=== PATIENT | female | born 1940 | race Caucasian/White ===

== ENCOUNTER 2019-02-12 08:05 | Inpatient (IN) | payer OTHER ==
[~2019-02-12] VITALS: Ht 157.5 cm; Wt 63.5 kg
[~2019-02-12 08:05] MED LIST: NKM
[2019-02-12 08:10] VITALS: BP 134/87
--- NOTE | 2019-02-12 08:10 | NUR ---
ED Nurse Note: pt brought by RA 61 from front of building side walk due to generalized weakness. security called [employer] and [employer] called 911. pt denies any injury or pain. per pt, slept there but did not know how long. AAO x3. does not know why she is in hospital. skin cold to touch. warm blankets provide. 98F oral at the bed side. a-fib noted on senior marketing analyst. hx of HTN and not on any meds. ekg done at the bed side. BS 110. pt undressed and changed to hospital gown. unkept noted. skin intact, no open wound noted. respirations even and non-labored noted. breath sounds clear. on senior marketing analyst. will wait for the further order.
[2019-02-12] MEDS ORDERED: Sodium Chloride 1,900 ML IVLG ONE (09:00)
[2019-02-12 09:04] LABS: BASOPHILS % (AUTO) 0.7 % (0.0-2.0); EOSINOPHILS % (AUTO) 0.9 % (0.0-3.0); HEMATOCRIT 43.1 % (37.0-47.0); HEMOGLOBIN 14.1 G/DL (12.0-16.0); LYMPHOCYTES % (AUTO) 22.2 % (20.0-45.0); MEAN CORPUSCULAR VOLUME 90 FL (80-99); MONOCYTES % (AUTO) 5.8 % (1.0-10.0); NEUTROPHILS % (AUTO) 70.4 % (45.0-75.0); PLATELET COUNT 206 K/UL (150-450); RED BLOOD COUNT 4.79 M/UL (4.20-5.40); RED CELL DISTRIBUTION WIDTH 12.3 % (11.6-14.8); WHITE BLOOD COUNT 6.1 K/UL (4.8-10.8)
[2019-02-12 09:05] LABS: APPEARANCE,URINE CLEAR; BILIRUBIN, URINE NEGATIVE (NEGATIVE); COLOR,URINE PALE YELLOW; GLUCOSE, URINE (UA) NEGATIVE (NEGATIVE); KETONES,URINE NEGATIVE (NEGATIVE); LEUKOCYTE ESTERASE ,URINE NEGATIVE (NEGATIVE); NITRITE,URINE NEGATIVE (NEGATIVE); PH,URINE 6 (4.5-8.0); PROTEIN,URINE 2+ (NEGATIVE); UROBILINOGEN,URINE NORMAL MG/DL (0.0-1.0)
--- NOTE | 2019-02-12 09:16 | Emergency Room Report ---
History of Present Illness General Chief Complaint: Generalized Weakness Source: Patient, EMS Present Illness HPI Patient persist by paramedics Was reported to be found on the street Patient here reports that she was sleeping when she was awakened and brought to the hospital Cannot provide any specific history Patient speaks clearly Denies any medical complaints at this time However there is some confusion regarding where she lives And why she was brought to the ER Denies any chest pain denies any headache History of present illness is significantly limited given the patient's ability to provide history Allergies: Coded Allergies: No Known Allergies (Unverified , 02/12/19) Patient History Past Medical History: see triage record Pertinent Family History: none Now: No Reviewed Nursing Documentation: PMH: Agreed; PSxH: Agreed Nursing Documentation-PMH Past Medical History: No History, Except For Hx Hypertension: Yes Review of Systems All Other Systems: negative except mentioned in HPI Physical Exam Vital Signs Date Time Temp Pulse Resp B/P (MAP) Pulse Ox O2 Delivery O2 Flow Rate FiO2 02/12/19 08:00 98.2 84 17 142/80 96 Room Air Sp02 EP Interpretation: reviewed, normal General Appearance: no apparent distress Head: normocephalic, atraumatic Eyes: bilateral eye PERRL, bilateral eye EOMI ENT: hearing grossly normal, normal pharynx, dry mucus membranes Neck: supple, no bony tend Respiratory: lungs clear, no retraction, no accessory muscle use Cardiovascular #1: regular rate, rhythm Gastrointestinal: non tender, soft Genitourinary: no CVA tenderness Musculoskeletal: other - Diffuse arthritic changes on her extremities, also edema bilateral lower extremity Neurologic: alert, responsive - With underlying confusion Psychiatric: mood/affect normal Skin: no rash, warm/dry - However somewhat disheveled Medical Decision Making Diagnostic Impression: Primary Impression: Encephalopathy Additional Impressions: Syncope Dehydration ER Course Patient is a fairly complex patient with multiple differential to consideration including but not limited to cardiac cardiopulmonary and vascular emergencies Other intracranial, neurological differentials entertained CT head does not show any acute pathology Baseline blood work are appropriate Patient is further hydrated There appears to be a possible missing person's report also coming through the computer system and patient will require further inpatient care Labs Test 02/13/19 18:05 02/14/19 00:32 02/14/19 04:00 02/14/19 07:46 Activated Partial Thromboplast Time 25 SEC (23-33) 53 SEC (23-33) > 150 SEC (23-33) White Blood Count 6.5 K/UL (4.8-10.8) Red Blood Count 3.86 M/UL (4.20-5.40) Hemoglobin 11.4 G/DL (12.0-16.0) Hematocrit 34.1 % (37.0-47.0) Mean Corpuscular Volume 88 FL (80-99) Mean Corpuscular Hemoglobin 29.4 PG (27.0-31.0) Mean Corpuscular Hemoglobin Concent 33.3 G/DL (32.0-36.0) Red Cell Distribution Width 12.1 % (11.6-14.8) Platelet Count 171 K/UL (150-450) Mean Platelet Volume 7.2 FL (6.5-10.1) Neutrophils (%) (Auto) 65.9 % (45.0-75.0) Lymphocytes (%) (Auto) 25.8 % (20.0-45.0) Monocytes (%) (Auto) 5.8 % (1.0-10.0) Eosinophils (%) (Auto) 2.2 % (0.0-3.0) Basophils (%) (Auto) 0.4 % (0.0-2.0) Sodium Level 140 MMOL/L (136-145) Potassium Level 3.1 MMOL/L (3.5-5.1) Chloride Level 106 MMOL/L (98-107) Carbon Dioxide Level 28 MMOL/L (21-32) Anion Gap 6 mmol/L (5-15) Blood Urea Nitrogen 21 mg/dL (7-18) Creatinine 1.4 MG/DL (0.55-1.30) Estimat Glomerular Filtration Rate mL/min (>60) Glucose Level 106 MG/DL (74-106) Calcium Level 8.8 MG/DL (8.5-10.1) Phosphorus Level 3.2 MG/DL (2.5-4.9) Magnesium Level 1.6 MG/DL (1.8-2.4) Test 02/14/19 16:30 02/15/19 00:15 02/15/19 08:10 Activated Partial Thromboplast Time 52 SEC (23-33) 118 SEC (23-33) 56 SEC (23-33) Sodium Level 140 MMOL/L (136-145) Potassium Level 3.7 MMOL/L (3.5-5.1) Chloride Level 108 MMOL/L (98-107) Carbon Dioxide Level 26 MMOL/L (21-32) Anion Gap 6 mmol/L (5-15) Blood Urea Nitrogen 16 mg/dL (7-18) Creatinine 1.2 MG/DL (0.55-1.30) Estimat Glomerular Filtration Rate mL/min (>60) Glucose Level 143 MG/DL (74-106) Calcium Level 8.8 MG/DL (8.5-10.1) Rhythm Strip Diag. Results EP Interpretation: yes Rate: 66 Rhythm: NSR, no PVC's, no ectopy Chest X-Ray Diagnostic Results Chest X-Ray Diagnostic Results : Chest X-Ray Ordered: Yes # of Views/Limited/Complete: 1 View Indication: Chest Pain EP Interpretation: Yes Interpretation: no consolidation, no effusion, no pneumothorax Impression: No acute disease - Cardiomegaly Electronically Signed by: Deshawn Kumari DO CT/MRI/US Diagnostic Results CT/MRI/US Diagnostic Results : Impression CT headImpression: Chronic and age-related changes, as described Old basal ganglia lacunar infarcts Negative for acute intracranial bleed or mass effect Last Vital Signs Date Time Temp Pulse Resp B/P (MAP) Pulse Ox O2 Delivery O2 Flow Rate FiO2 02/12/19 08:10 70 14 Room Air 02/12/19 08:10 98.0 134/87 100 Status: improved Disposition: ADMITTED INPATIENT Condition: Serious Referrals: [facility],REFERRING (PCP) Deshawn Kumari DO Feb 12, 2019 09:16
[2019-02-12 09:20] LABS: ANION GAP 7 mmol/L (5-15); BLOOD UREA NITROGEN 27 mg/dL (7-18); CALCIUM 9.6 MG/DL (8.5-10.1); CARBON DIOXIDE 27 MMOL/L (21-32); CHLORIDE 107 MMOL/L (98-107); CREATININE 1.3 MG/DL (0.55-1.30); POTASSIUM 3.5 MMOL/L (3.5-5.1); SODIUM 141 MMOL/L (136-145)
--- NOTE | 2019-02-12 09:25 | Diagnostic Imaging Report ---
Indications: Altered mental status and generalized weakness Technique: Spiral acquisitions obtained through the brain. Angled axial and coronal 5 x 5 mm slices were reconstructed. Total dose length product 1392.76 mGycm. CTDI vol(s) 70.38 mGy. Dose reduction achieved using automated exposure control Comparison: None. Findings: There is marked age-related enlargement of the ventricles and extra axial CSF spaces. There is extensive periventricular deep white matter low-attenuation. Old lacunar infarct is seen in the left thalamus. Old left external capsule lacunar infarct is also demonstrated. No acute intracranial hemorrhage nor edema, mass effect, nor midline shift. There is evidence of prior cataract surgery on the right. The calvarium is intact. The mastoids are clear. The sinuses are clear. Impression: Chronic and age-related changes, as described Old basal ganglia lacunar infarcts Negative for acute intracranial bleed or mass effect The CT scanner at [facility] is accredited by the [employer] and the scans are performed using protocols designed to limit radiation exposure to as low as reasonably achievable to attain images of sufficient resolution adequate for diagnostic evaluation.
[2019-02-12 09:37] LABS: ALANINE AMINOTRANSFERASE 21 U/L (12-78); ALBUMIN 3.4 G/DL (3.4-5.0); ALBUMIN/GLOBULIN RATIO 0.8 (1.0-2.7); ALKALINE PHOSPHATASE 97 U/L (46-116); ASPARTATE AMINO TRANSFERASE 26 U/L (15-37); CKMB 3.9 NG/ML (0.0-3.6); CREATINE KINASE 100 U/L (26-308)
--- NOTE | 2019-02-12 09:53 | Diagnostic Imaging Report ---
Indication: Shortness of breath Technique: One view of the chest Comparison: none Findings: Heart is borderline enlarged. Lungs and pleural spaces are clear. Impression: Borderline cardiomegaly. No acute process
[2019-02-12 10:00] VITALS: BP 105/103
--- NOTE | 2019-02-12 10:46 | NUR ---
ED Nurse Note: Reports given to RACHEL Cabral.
--- NOTE | 2019-02-12 10:50 | NUR ---
ED Nurse Note: Reports given to RACHEL Cabral.
--- NOTE | 2019-02-12 12:32 | NUR ---
RADIOLOGY DEPT, CHEST X-RAY DONE.-P.DYE
--- NOTE | 2019-02-12 14:26 | NUR ---
Social Work This SW received a consult due to possible homelessness. Patient has an address listed on demographics. This Sw made attempts to speak with patient, who is currently unarousable at this time. This Sw made an attempt to locate family at current address ([phone]); no answer or voice message at this time. SW to meet with patient when more alert/oriented (presented with confusion upon admission).
--- NOTE | 2019-02-12 16:48 | NUR ---
NURSE NOTES:WOUND CARE NOTES:Pt presented on admission with non-blanching erythema sacrum .Erythema resolved when when assessed by this nurse .Pt educated on wound prevention and potential risks for skin breakdown. Pt encouraged to frequently turn and to off-lift buttocks when repositioning to avoid friction to skin .Pt verbalized understanding. Recommendations .Encourage pt to reposition frequently. Apply Optifoam drsg to sacrum to prevent friction to skin.
[2019-02-12] MEDS: D5NS 1,000 ML IV SCH (17:24)
--- NOTE | 2019-02-12 18:30 | History and Physical Report ---
DATE OF ADMISSION: 02/12/2019 HISTORY OF PRESENT ILLNESS: This is an 79-year-old female, who was found on the sidewalk next to the hospital. She was brought in by paramedics. She was unable to provide any history. She is unable to give details about her residence or any medical issues. The patient was seen and worked up in the emergency room. She was found to be disheveled with poor personal hygiene. She is admitted to the hospital for workup and care. On my questioning, the patient states she has hypertension and that is only she is able to provide me. ALLERGIES: Not known. HOME MEDICATIONS: Not known. SOCIAL HISTORY: Not known. FAMILY HISTORY: Not known. REVIEW OF SYSTEMS: Unreliable. PHYSICAL EXAMINATION: GENERAL: Reveals an 79-year-old female. She appears to be disheveled with poor personal hygiene. She has long toenails with dirt on them. She has appearance of a homeless person. HEENT: Unremarkable. VITAL SIGNS: Blood pressure is 140/80, heart rate 84, respirations 18, O2 saturation 97% on room air. LUNGS: Clear breath sounds bilaterally. ABDOMEN: Soft. EXTREMITIES: There is no edema. NEUROLOGIC: Nonfocal. LABORATORY DATA: Lab testing shows a normal CBC and BMP. Lactic acid 2.2 down to 2 after 2 hours. Troponin is negative. Albumin is 3.4. Urinalysis is negative. IMAGING STUDIES: A chest x-ray was obtained, which is read as negative. CT head was also obtained, which shows old basal ganglia infarct. IMPRESSION: 1. Altered mental status. 2. Unclear baseline mental status. 3. Possible homelessness. DISCUSSION: I will obtain social media developer consultation. We will involve Psychiatry. We will attempt to obtain old records. We will follow carefully. In the interim, start IV fluids. DVT prophylaxis. Provide medication. Chintan Aburto M.D. DR: ISAÍAS JOB#: [id number] CC:
--- NOTE | 2019-02-12 19:38 | NUR ---
NURSE NOTES: Received pt. and report from RACHEL Frias. Observe pt. resting in bed with both eyes open. secured entrance monitor is in placed, IV site is intact, asymptomatic, and patent. Bed is in the lowest position and locked, call light within reach. No acute distress noted at this time. Will continue plan of care.
--- NOTE | 2019-02-12 19:49 | NUR ---
HAND-OFF: Report given to RACHEL Guardado. Plan of care endorsed.
[2019-02-12 20:00] VITALS: BP 122/81
--- NOTE | 2019-02-12 21:24 | Consultation ---
History of Present Illness General Chief Complaint: Generalized Weakness Present Illness HPI 79-year-old female, with unknown medical hx who was found on the sidewalk next to the hospital. the pt was confused and disoriented. the pt was dosing off during the evaluation. She was unable to provide any history. the pt was confused. the pt had memory impairment however was not agitated. the pt was sleep most of the afternoon Allergies: Coded Allergies: No Known Allergies (Unverified , 02/12/19) Medication History Scheduled No Known Medications* (NKM - No Known Medications*), 0 ., (Reported) Patient History Limited by: medical condition History Provided By: Medical Record, PMD Healthcare decision maker Resuscitation status Full Code Advanced Directive on File Past Medical/Surgical History Past Medical/Surgical History: (1) Encephalopathy (2) A-fib Review of Systems Psychiatric: Reports: anxiety Physical Exam General Appearance: alert - waxing and waning of conciousness, confused, agitated Last 24 Hour Vital Signs Date Time Temp Pulse Resp B/P (MAP) Pulse Ox O2 Delivery O2 Flow Rate FiO2 02/12/19 16:15 67 02/12/19 13:03 Room Air 02/12/19 12:00 65 02/12/19 10:50 97.8 65 16 149/97 98 Room Air 02/12/19 10:00 79 18 105/103 99 Room Air 02/12/19 08:10 70 14 Room Air 02/12/19 08:10 98.0 70 14 134/87 100 Room Air 02/12/19 08:00 98.2 84 17 142/80 96 Room Air Laboratory Tests Test 02/12/19 08:25 02/12/19 10:05 White Blood Count 6.1 K/UL (4.8-10.8) Red Blood Count 4.79 M/UL (4.20-5.40) Hemoglobin 14.1 G/DL (12.0-16.0) Hematocrit 43.1 % (37.0-47.0) Mean Corpuscular Volume 90 FL (80-99) Mean Corpuscular Hemoglobin 29.4 PG (27.0-31.0) Mean Corpuscular Hemoglobin Concent 32.7 G/DL (32.0-36.0) Red Cell Distribution Width 12.3 % (11.6-14.8) Platelet Count 206 K/UL (150-450) Mean Platelet Volume 7.2 FL (6.5-10.1) Neutrophils (%) (Auto) 70.4 % (45.0-75.0) Lymphocytes (%) (Auto) 22.2 % (20.0-45.0) Monocytes (%) (Auto) 5.8 % (1.0-10.0) Eosinophils (%) (Auto) 0.9 % (0.0-3.0) Basophils (%) (Auto) 0.7 % (0.0-2.0) Urine Color Pale yellow Urine Appearance Clear Urine pH 6 (4.5-8.0) Urine Specific [place] 1.015 (1.005-1.035) Urine Protein 2+ (NEGATIVE) H Urine Glucose (UA) Negative (NEGATIVE) Urine Ketones Negative (NEGATIVE) Urine Blood 3+ (NEGATIVE) H Urine Nitrite Negative (NEGATIVE) Urine Bilirubin Negative (NEGATIVE) Urine Urobilinogen Normal MG/DL (0.0-1.0) Urine Leukocyte Esterase Negative (NEGATIVE) Urine RBC 2-4 /HPF (0 - 2) H Urine WBC 0 /HPF (0 - 2) Urine Squamous Epithelial Cells Occasional /LPF Urine Bacteria Occasional /HPF (NONE) Sodium Level 141 MMOL/L (136-145) Potassium Level 3.5 MMOL/L (3.5-5.1) Chloride Level 107 MMOL/L (98-107) Carbon Dioxide Level 27 MMOL/L (21-32) Anion Gap 7 mmol/L (5-15) Blood Urea Nitrogen 27 mg/dL (7-18) H Creatinine 1.3 MG/DL (0.55-1.30) Estimat Glomerular Filtration Rate mL/min (>60) Glucose Level 106 MG/DL (74-106) Lactic Acid Level 2.20 mmol/L (0.4-2.0) H 2.00 mmol/L (0.66-2.22) Calcium Level 9.6 MG/DL (8.5-10.1) Total Bilirubin 1.0 MG/DL (0.2-1.0) Aspartate Amino Transf (AST/SGOT) 26 U/L (15-37) Alanine Aminotransferase (ALT/SGPT) 21 U/L (12-78) Alkaline Phosphatase 97 U/L (46-116) Total Creatine Kinase 100 U/L (26-308) Creatine Kinase MB 3.9 NG/ML (0.0-3.6) H Creatine Kinase MB Relative Index 3.9 Troponin I 0.002 ng/mL (0.000-0.056) Pro-B-Type Natriuretic Peptide 4238 pg/mL (0-125) H Total Protein 7.8 G/DL (6.4-8.2) Albumin 3.4 G/DL (3.4-5.0) Globulin 4.4 g/dL Albumin/Globulin Ratio 0.8 (1.0-2.7) L Lipase 122 U/L (73-393) Height (Feet): 5 Height (Inches): 2.00 Weight (Pounds): 140 Medications Current Medications Medications (Trade) Dose Ordered Sig/Skye Route PRN Reason Start Time Stop Time Status Last Admin Dose Admin Acetaminophen (Tylenol) 650 mg Q4H PRN ORAL Mild Pain (Pain Scale 1-3) 02/12/19 12:00 03/14/19 11:59 Dextrose (Dextrose 50%) 25 ml Q30M PRN IV Hypoglycemia 02/12/19 12:00 03/14/19 11:59 Dextrose (Dextrose 50%) 50 ml Q30M PRN IV Hypoglycemia 02/12/19 12:00 03/14/19 11:59 Dextrose/Sodium Chloride 1,000 ml @ 50 mls/hr Q20H IV 02/12/19 12:57 03/14/19 12:56 02/12/19 17:24 Heparin Sodium (Porcine) (Heparin 5000 units/ml) 5,000 units EVERY 12 HOURS SUBQ 02/12/19 21:00 03/14/19 20:59 Assessment/Plan Problem List: (1) Acute metabolic encephalopathy ICD Codes: G93.41 - Metabolic encephalopathy SNOMED: 70228933, [id number] Status: unchanged Assessment/Plan Haldol Im prn risperdal prn the pt lacks capacity to make decisions. Candie Kelley MD Feb 12, 2019 21:24
[2019-02-12] MEDS ORDERED: Haloperidol 5mg/ml Inj IM PRN (21:30)
[2019-02-12] MEDS: Heparin 5000 units/ml inj SUBQ SCH (22:26)
[2019-02-13] VITALS: BP 129/82
[2019-02-13 04:00] VITALS: BP 148/98
--- NOTE | 2019-02-13 07:35 | NUR ---
HAND-OFF: Report given to RACHEL Castrejon.
--- NOTE | 2019-02-13 07:45 | NUR ---
NURSE NOTES: Report received from RACHEL Guardado. Pt is resting in bed, in semi- monk position. Patient in stable condition and eating her breakfast. No signs and symptoms of acute distress at this time. IV sites intact and running at RX dose. Bed is in lowest position with brake engaged, side rails up x2. Bed alarm om, call light and side table placed within reach. Will continue to monitor.
[2019-02-13 08:00] VITALS: BP 144/91
--- NOTE | 2019-02-13 08:41 | Nephrology Progress Note ---
Assessment/Plan Assessment/Plan A/P 1) Acute Encephalopathy- resolved, patient more coherent - continue IVFs, nutrition and vitamins 2) Homeless- SW to address 3) DVT prophylaxsis- SCDs Subjective Date patient seen: Feb 13, 2019 Time patient seen: 08:37 Allergies: Coded Allergies: No Known Allergies (Unverified , 02/12/19) All Systems: reviewed and negative except above Subjective Patient much improved. More awake and alert Objective Last 24 Hour Vital Signs Date Time Temp Pulse Resp B/P (MAP) Pulse Ox O2 Delivery O2 Flow Rate FiO2 02/13/19 08:00 98.7 85 18 144/91 (108) 99 02/13/19 04:00 132 02/13/19 04:00 98.9 103 17 148/98 (115) 96 02/13/19 00:00 98 02/13/19 00:00 98.2 90 18 129/82 (98) 97 02/12/19 21:00 Room Air 02/12/19 20:00 98.4 97 17 122/81 (95) 97 02/12/19 20:00 106 02/12/19 16:15 67 02/12/19 13:03 Room Air 02/12/19 12:00 65 02/12/19 10:50 97.8 65 16 149/97 98 Room Air 02/12/19 10:00 79 18 105/103 99 Room Air Intake and Output 02/12/19 02/13/19 19:00 07:00 Intake Total 2140 ml Balance 2140 ml Intake Oral 240 ml IV Total 1900 ml # Voids 2 Laboratory Tests 02/12/19 10:05: Lactic Acid Level 2.00 Height (Feet): 5 Height (Inches): 2.00 Weight (Pounds): 140 General Appearance: no apparent distress, alert EENT: normal ENT inspection Neck: normal alignment, supple Cardiovascular: normal rate, regular rhythm Respiratory/Chest: lungs clear, normal breath sounds Abdomen: non tender, soft Edema: no edema noted Arm (L), no edema noted Arm (R), no edema noted Leg (L), no edema noted Leg (R), no edema noted Pedal (L), no edema noted Pedal (R), no edema noted Generalized Basim Mccrary MD Feb 13, 2019 08:41
[2019-02-13] MEDS: D5NS 1,000 ML IV SCH (09:10)
[2019-02-13] MEDS: Heparin 5000 units/ml inj SUBQ SCH (09:11)
[2019-02-13 12:00] VITALS: BP 144/94
[2019-02-13 16:00] VITALS: BP 140/83
[2019-02-13] MEDS ORDERED: Heparin 25,000u/D5W 500ml 500 ML IV SCH (18:21)
--- NOTE | 2019-02-13 19:18 | NUR ---
NURSE NOTES: Received pt. and report from RACHEL Castrejon. Observe pt. resting in bed with both eyes open. surveillance monitor is in placed, IV site intact, asymptomatic and patent. Bed is in the lowest position and locked. Call light within reach. No acute distress noted at this time. Will continue plan of care.
--- NOTE | 2019-02-13 19:30 | NUR ---
HAND-OFF: Report given to RACHEL Guardado.
[2019-02-13 20:00] VITALS: BP 159/106
[2019-02-14] VITALS: BP 128/86
--- NOTE | 2019-02-14 01:10 | NUR ---
NURSE NOTES: Daja Baltazar called to inform that APTT is 53. Heparin drip will increase to 20 units/kg/hr; rate of 25.401 with one time heparin bolus of 2,500 units IVP.
[2019-02-14] MEDS ORDERED: Heparin 25,000u/D5W 500ml 500 ML IV SCH ×2 (01:30→10:30)
[2019-02-14] MEDS ORDERED: Heparin 5000 units/ml inj SUBQ ONE (01:30)
[2019-02-14] MEDS ORDERED: Heparin 5000 units/ml inj IV ONE (01:30)
--- NOTE | 2019-02-14 01:36 | NUR ---
NURSE NOTES: Heparin 2,500 units was given IV Push instead of SubQ per pharmacist.
[2019-02-14 04:00] VITALS: BP 106/80
[2019-02-14 04:15] LABS: BASOPHILS % (AUTO) 0.4 % (0.0-2.0); EOSINOPHILS % (AUTO) 2.2 % (0.0-3.0); HEMATOCRIT 34.1 % (37.0-47.0); HEMOGLOBIN 11.4 G/DL (12.0-16.0); LYMPHOCYTES % (AUTO) 25.8 % (20.0-45.0); MEAN CORPUSCULAR VOLUME 88 FL (80-99); MONOCYTES % (AUTO) 5.8 % (1.0-10.0); NEUTROPHILS % (AUTO) 65.9 % (45.0-75.0); PLATELET COUNT 171 K/UL (150-450); RED BLOOD COUNT 3.86 M/UL (4.20-5.40); RED CELL DISTRIBUTION WIDTH 12.1 % (11.6-14.8); WHITE BLOOD COUNT 6.5 K/UL (4.8-10.8)
[2019-02-14] MEDS: D5NS 1,000 ML IV SCH (04:20)
[2019-02-14 04:27] LABS: ANION GAP 6 mmol/L (5-15); BLOOD UREA NITROGEN 21 mg/dL (7-18); CALCIUM 8.8 MG/DL (8.5-10.1); CARBON DIOXIDE 28 MMOL/L (21-32); CHLORIDE 106 MMOL/L (98-107); CREATININE 1.4 MG/DL (0.55-1.30); PHOSPHORUS 3.2 MG/DL (2.5-4.9); POTASSIUM 3.1 MMOL/L (3.5-5.1); SODIUM 140 MMOL/L (136-145)
--- NOTE | 2019-02-14 07:36 | NUR ---
NURSE NOTES: Received report from RACHEL Guardado. Patient in bed resting, no active s/s cardiac, respiratory distress noticed at this time, denies pain at this time. Patient on heparin drip 20 unit/kg/hr rate of 25.401, IV site asymptomatic, patent, intact. IV on left wrist IV fluid running at prescribed rate, asymptomatic, patent, intact. A. fib with HR 69, endorsed doctor aware of A. fib. Bed in lowest position, side rails upx3, call light within reach. Will continue to monitor.
--- NOTE | 2019-02-14 07:44 | NUR ---
HAND-OFF: Report given to RACHEL Huynh.
--- NOTE | 2019-02-14 07:58 | Nephrology Progress Note ---
Assessment/Plan Assessment/Plan A/P 1) Acute Encephalopathy- resolved - continue IVFs, nutrition and vitamins 2) Homeless- SW to address 3) DVT prophylaxsis- SCDs 4) E- Abn- replace K+ and Mg 5) CKD 3B- stable. Monitor. Cr at 1.4 Subjective Date patient seen: Feb 14, 2019 Time patient seen: 07:54 ROS Limited/Unobtainable: No Allergies: Coded Allergies: No Known Allergies (Unverified , 02/12/19) Subjective Patient improved. No complaints Objective Last 24 Hour Vital Signs Date Time Temp Pulse Resp B/P (MAP) Pulse Ox O2 Delivery O2 Flow Rate FiO2 02/14/19 04:00 98.0 69 20 106/80 (89) 100 02/14/19 04:00 72 02/14/19 00:00 97.5 73 17 128/86 (100) 96 02/14/19 00:00 82 02/13/19 22:12 98 159/106 02/13/19 21:00 Room Air 02/13/19 20:00 97.0 104 20 159/106 (123) 98 02/13/19 20:00 122 02/13/19 16:00 118 02/13/19 16:00 98.8 99 18 140/83 (102) 98 02/13/19 12:00 101 02/13/19 12:00 98.6 102 18 144/94 (111) 100 02/13/19 09:00 Room Air 02/13/19 08:00 81 02/13/19 08:00 98.7 85 18 144/91 (108) 99 Intake and Output 02/13/19 02/14/19 19:00 07:00 Intake Total 740 ml 320 ml Balance 740 ml 320 ml Intake Oral 740 ml 320 ml # Voids 6 3 Laboratory Tests 02/13/19 18:05: Activated Partial Thromboplast Time 25 02/14/19 00:32: Activated Partial Thromboplast Time 53H 02/14/19 04:00: White Blood Count 6.5, Red Blood Count 3.86L, Hemoglobin 11.4L, Hematocrit 34.1L , Mean Corpuscular Volume 88, Mean Corpuscular Hemoglobin 29.4, Mean Corpuscular Hemoglobin Concent 33.3, Red Cell Distribution Width 12.1, Platelet Count 171, Mean Platelet Volume 7.2, Neutrophils (%) (Auto) 65.9, Lymphocytes (% ) (Auto) 25.8, Monocytes (%) (Auto) 5.8, Eosinophils (%) (Auto) 2.2, Basophils ( %) (Auto) 0.4, Sodium Level 140, Potassium Level 3.1L, Chloride Level 106, Carbon Dioxide Level 28, Anion Gap 6, Blood Urea Nitrogen 21H, Creatinine 1.4H, Estimat Glomerular Filtration Rate , Glucose Level 106, Calcium Level 8.8, Phosphorus Level 3.2, Magnesium Level 1.6L Height (Feet): 5 Height (Inches): 2.00 Weight (Pounds): 140 General Appearance: no apparent distress, alert EENT: normal ENT inspection Neck: normal alignment, supple Cardiovascular: normal rate, regular rhythm Respiratory/Chest: lungs clear, normal breath sounds Abdomen: non tender, soft Edema: no edema noted Arm (L), no edema noted Arm (R), no edema noted Leg (L), no edema noted Leg (R), no edema noted Pedal (L), no edema noted Pedal (R), no edema noted Generalized Basim Mccrary MD Feb 14, 2019 07:58
[2019-02-14 08:00] VITALS: BP 138/85
[2019-02-14 12:00] VITALS: BP 132/90
[2019-02-14 16:00] VITALS: BP 129/82
[2019-02-14] MEDS ORDERED: Heparin 5000 units/ml inj IV SCH (17:12)
[2019-02-14] MEDS: Heparin 25,000u/D5W 500ml 500 ML IV SCH ×2 (17:52→20:28)
[2019-02-14] MEDS ORDERED: Tubing IV Secondary IV ONE (19:32)
--- NOTE | 2019-02-14 19:37 | NUR ---
HAND-OFF: Report given to RACHEL Starr.
--- NOTE | 2019-02-14 19:39 | NUR ---
NURSE NOTES: RECEIVED PATIENT RESTING IN BED, NO COMPLAINTS OF PAIN AT THIS TIME. HEPARIN DRIP AT 22.861 ML/HR---18 UNITS KG/HR. NO SIGNS OF BLEEDING NOTED. NEXT PTT AT MIDNIGHT. FALL PRECAUTIONS IN PLACE: CALL LIGHT AND BEDSIDE TABLE WITHIN REACH AND BED IN LOW POSITION. PLAN OF CARE REVIEWED.
[2019-02-14 20:00] VITALS: BP 154/98
--- NOTE | 2019-02-14 22:42 | General Progress Note ---
Assessment/Plan Problem List: (1) Acute metabolic encephalopathy ICD Codes: G93.41 - Metabolic encephalopathy SNOMED: 82213259, [id number] Assessment/Plan Haldol Im prn risperdal prn the pt lacks capacity to make decisions. Subjective Neurologic/Psychiatric: Reports: anxiety, depressed, emotional problems Allergies: Coded Allergies: No Known Allergies (Unverified , 02/12/19) Objective Last 24 Hour Vital Signs Date Time Temp Pulse Resp B/P (MAP) Pulse Ox O2 Delivery O2 Flow Rate FiO2 02/14/19 21:00 Room Air 02/14/19 20:26 89 154/98 02/14/19 20:00 98.0 89 20 154/98 (116) 97 02/14/19 20:00 78 02/14/19 16:00 98.3 77 18 129/82 (98) 98 02/14/19 16:00 68 02/14/19 12:00 98.6 76 18 132/90 (104) 99 02/14/19 12:00 71 02/14/19 10:43 73 02/14/19 09:00 Room Air 02/14/19 08:47 80 138/83 02/14/19 08:00 98.3 80 18 138/85 (102) 97 02/14/19 04:00 98.0 69 20 106/80 (89) 100 02/14/19 04:00 72 02/14/19 00:00 97.5 73 17 128/86 (100) 96 02/14/19 00:00 82 Intake and Output 02/13/19 02/14/19 19:00 07:00 Intake Total 740 ml 320 ml Balance 740 ml 320 ml Intake Oral 740 ml 320 ml # Voids 6 3 Laboratory Tests 02/14/19 00:32: Activated Partial Thromboplast Time 53H 02/14/19 04:00: White Blood Count 6.5, Red Blood Count 3.86L, Hemoglobin 11.4L, Hematocrit 34.1L , Mean Corpuscular Volume 88, Mean Corpuscular Hemoglobin 29.4, Mean Corpuscular Hemoglobin Concent 33.3, Red Cell Distribution Width 12.1, Platelet Count 171, Mean Platelet Volume 7.2, Neutrophils (%) (Auto) 65.9, Lymphocytes (% ) (Auto) 25.8, Monocytes (%) (Auto) 5.8, Eosinophils (%) (Auto) 2.2, Basophils ( %) (Auto) 0.4, Sodium Level 140, Potassium Level 3.1L, Chloride Level 106, Carbon Dioxide Level 28, Anion Gap 6, Blood Urea Nitrogen 21H, Creatinine 1.4H, Estimat Glomerular Filtration Rate , Glucose Level 106, Calcium Level 8.8, Phosphorus Level 3.2, Magnesium Level 1.6L 02/14/19 07:46: Activated Partial Thromboplast Time > 150*H 02/14/19 16:30: Activated Partial Thromboplast Time 52H Height (Feet): 5 Height (Inches): 2.00 Weight (Pounds): 140 General Appearance: alert, confused Neurologic: depressed affect Candie Kelley MD Feb 14, 2019 22:42
[2019-02-15] VITALS: BP 135/94
--- NOTE | 2019-02-15 01:30 | NUR ---
NURSE NOTES: PTT 118. HEPARIN DRIP STOPPED FOR 30 MINS PER HEPARIN DRIP PROTOCOL AND PIPELINE PHARMACIST. WILL RESTART HEPARIN DRIP AT 0200 WITH NEW RATE 15 UNITS/KG/HR----19.051ML/HR. NEXT PTT DUE AT 0800
[2019-02-15] MEDS ORDERED: Heparin 25,000u/D5W 500ml 500 ML IV SCH ×2 (02:00→09:15)
[2019-02-15 04:00] VITALS: BP 135/79
--- NOTE | 2019-02-15 07:16 | NUR ---
NURSE NOTES: Received report from RACHEL Starr. Patient in bed resting, no active s/s cardiac, reparatory distress noticed at this time, denies pain at this time, patient on room air. Heparin drip running at 15 unit/kg/hr rate of 19.051, next PTT at 0800, no s/s of bleeding. IV on right FA 20G, left wrist 22G, IV fluid running at prescribed rate, asymptomatic, patent, intact. Bedside commode at bed side, bed in lowest position, side rails upx2, call light within reach. Will continue to monitor.
--- NOTE | 2019-02-15 07:18 | NUR ---
CASE MANAGEMENT:REVIEW 79 YR OLD FEMALE BIBA FROM STREET CC: GENERALIZED WEAKNESS SI: ENCEPHALOPATHY. AFIB 98.2 84 17 142/80 96% ON RA BUN+27 LACTIC ACID+2.20 IS: 1L NS BOLUS HEPARIN SQ CT HEAD CXR BLOOD CX : TO TELEMETRY PLAN: NEURO CHECKS Q4HRS 02/14/19 SI: ACUTE ENCEPHALOPATHY. 98.3 104 18 129/82 98% ON RA K-3.1 BUN+21 CR+1.4 MAG-1.6 IS: HEPARIN GTT IVF@100/HR LOPRESSOR PO Q12 : TELEMETRY STATUS 02/15/19 SI: ACUTE ENCEPHALOPATHY. AFIB 97.0 54 20 135/79 95% ON RA IS: HEPARIN GTT IVF@100/HR LOPRESSOR PO Q12 : TELEMETRY STATUS
--- NOTE | 2019-02-15 07:18 | NUR ---
HAND-OFF: Report given to RACHEL ACEVES. PATIENT RESTING IN BED, NO SIGNS OF DISTRESS OR BLEEDING NOTED.
[2019-02-15 08:00] VITALS: BP 142/103
--- NOTE | 2019-02-15 08:03 | Nephrology Progress Note ---
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 Monitor. Cr at 1.4. AM labs pending Subjective Date patient seen: Feb 15, 2019 Time patient seen: 08:02 ROS Limited/Unobtainable: No Allergies: Coded Allergies: No Known Allergies (Unverified , 02/12/19) Subjective Patient feeling better. No complaints Objective Last 24 Hour Vital Signs Date Time Temp Pulse Resp B/P (MAP) Pulse Ox O2 Delivery O2 Flow Rate FiO2 02/15/19 04:00 97.0 59 20 135/79 (97) 95 02/15/19 04:00 54 02/15/19 00:00 98.3 83 20 135/94 (108) 97 02/15/19 00:00 71 02/14/19 21:00 Room Air 02/14/19 20:26 89 154/98 02/14/19 20:00 98.0 89 20 154/98 (116) 97 02/14/19 20:00 78 02/14/19 16:00 98.3 77 18 129/82 (98) 98 02/14/19 16:00 68 02/14/19 12:00 98.6 76 18 132/90 (104) 99 02/14/19 12:00 71 02/14/19 10:43 73 02/14/19 09:00 Room Air 02/14/19 08:47 80 138/83 Intake and Output 02/14/19 02/15/19 18:59 06:59 Intake Total 750 ml 1452.749 ml Balance 750 ml 1452.749 ml Intake Oral 750 ml 120 ml IV Total 1332.749 ml # Voids 5 3 # Bowel Movements 1 Laboratory Tests 02/14/19 16:30: Activated Partial Thromboplast Time 52H 02/15/19 00:15: Activated Partial Thromboplast Time 118H Height (Feet): 5 Height (Inches): 2.00 Weight (Pounds): 140 General Appearance: no apparent distress, alert EENT: normal ENT inspection Neck: normal alignment, supple Cardiovascular: normal rate, regular rhythm Respiratory/Chest: lungs clear, normal breath sounds Abdomen: non tender, soft Edema: no edema noted Arm (L), no edema noted Arm (R), no edema noted Leg (L), no edema noted Leg (R), no edema noted Pedal (L), no edema noted Pedal (R), no edema noted Generalized Basim Mccrary MD Feb 15, 2019 08:03
[2019-02-15 08:55] LABS: ANION GAP 6 mmol/L (5-15); BLOOD UREA NITROGEN 16 mg/dL (7-18); CALCIUM 8.8 MG/DL (8.5-10.1); CARBON DIOXIDE 26 MMOL/L (21-32); CHLORIDE 108 MMOL/L (98-107); CREATININE 1.2 MG/DL (0.55-1.30); POTASSIUM 3.7 MMOL/L (3.5-5.1); SODIUM 140 MMOL/L (136-145)
[2019-02-15] MEDS ORDERED: Heparin 5000 units/ml inj IV SCH (09:15)
--- NOTE | 2019-02-15 09:32 | Consultation ---
History of Present Illness General Date patient seen: Feb 15, 2019 Time patient seen: 09:29 Chief Complaint: Generalized Weakness Present Illness HPI 79 year old female admitted with encephalopathy and cardiology consulted for AFIB RVR. Started on heparin gtt and metoprolol for rate control, no chest pain or shortness of breath. Allergies: Coded Allergies: No Known Allergies (Unverified , 02/12/19) Medication History Scheduled No Known Medications* (NKM - No Known Medications*), 0 ., (Reported) Patient History Healthcare decision maker Resuscitation status Full Code Advanced Directive on File Review of Systems Constitutional: Reports: no symptoms Eye: Reports: no symptoms ENT: Reports: no symptoms Respiratory: Reports: no symptoms Cardiovascular: Reports: no symptoms Gastrointestinal: Reports: no symptoms Genitourinary: Reports: no symptoms Musculoskeletal: Reports: no symptoms Skin: Reports: no symptoms Psychiatric: Reports: no symptoms Neurological: Reports: no symptoms Endocrine: Reports: no symptoms Hematologic/Lymphatic: Reports: no symptoms Physical Exam General Appearance: no apparent distress, alert Lines, tubes and drains: peripheral HEENT: normocephalic, atraumatic Neck: non-tender, normal alignment, supple, normal inspection Respiratory/Chest: chest wall non-tender, lungs clear, normal breath sounds Cardiovascular/Chest: normal peripheral pulses, normal rate, regular rhythm Abdomen: normal bowel sounds, non tender, soft, no organomegaly Extremities: normal range of motion, non-tender Skin Exam: normal pigmentation, warm/dry, cyanotic 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 normal, no motor/sensory deficits Last 24 Hour Vital Signs Date Time Temp Pulse Resp B/P (MAP) Pulse Ox O2 Delivery O2 Flow Rate FiO2 02/15/19 08:38 100 142/103 02/15/19 08:00 97.2 100 18 142/103 (116) 98 02/15/19 04:00 97.0 59 20 135/79 (97) 95 02/15/19 04:00 54 02/15/19 00:00 98.3 83 20 135/94 (108) 97 02/15/19 00:00 71 02/14/19 21:00 Room Air 02/14/19 20:26 89 154/98 02/14/19 20:00 98.0 89 20 154/98 (116) 97 02/14/19 20:00 78 02/14/19 16:00 98.3 77 18 129/82 (98) 98 02/14/19 16:00 68 02/14/19 12:00 98.6 76 18 132/90 (104) 99 02/14/19 12:00 71 02/14/19 10:43 73 Intake and Output 02/14/19 02/15/19 19:00 07:00 Intake Total 872.861 ml 1448.939 ml Balance 872.861 ml 1448.939 ml Intake Oral 750 ml 120 ml IV Total 122.861 ml 1328.939 ml # Voids 5 3 # Bowel Movements 1 Laboratory Tests Test 02/14/19 16:30 02/15/19 00:15 02/15/19 08:10 Activated Partial Thromboplast Time 52 SEC (23-33) H 118 SEC (23-33) H 56 SEC (23-33) H Sodium Level 140 MMOL/L (136-145) Potassium Level 3.7 MMOL/L (3.5-5.1) Chloride Level 108 MMOL/L (98-107) H Carbon Dioxide Level 26 MMOL/L (21-32) Anion Gap 6 mmol/L (5-15) Blood Urea Nitrogen 16 mg/dL (7-18) Creatinine 1.2 MG/DL (0.55-1.30) Estimat Glomerular Filtration Rate mL/min (>60) Glucose Level 143 MG/DL (74-106) H Calcium Level 8.8 MG/DL (8.5-10.1) Height (Feet): 5 Height (Inches): 2.00 Weight (Pounds): 140 Medications Current Medications Medications (Trade) Dose Ordered Sig/Skye Route PRN Reason Start Time Stop Time Status Last Admin Dose Admin Acetaminophen (Tylenol) 650 mg Q4H PRN ORAL Mild Pain (Pain Scale 1-3) 02/12/19 12:00 03/14/19 11:59 Dextrose (Dextrose 50%) 25 ml Q30M PRN IV Hypoglycemia 02/12/19 12:00 03/14/19 11:59 Dextrose (Dextrose 50%) 50 ml Q30M PRN IV Hypoglycemia 02/12/19 12:00 03/14/19 11:59 Haloperidol Lactate (Haldol) 5 mg Q6H PRN IM Agitation 02/12/19 21:30 03/14/19 21:29 Heparin Sodium (Porcine) (Heparin 5000 units/ml) 2,500 units ONCE IV 02/15/19 09:15 02/15/19 11:30 02/15/19 09:23 Heparin Sodium/ Dextrose 500 ml @ 21.591 mls/ hr ADJUST PER PROTOCOL IV 02/15/19 09:15 03/17/19 09:14 02/15/19 09:25 Metoprolol Tartrate (Lopressor) 100 mg EVERY 12 HOURS ORAL 02/13/19 21:00 03/15/19 20:59 02/15/19 08:38 Multivitamins (Multivitamins) 1 tab DAILY ORAL 02/13/19 09:00 03/15/19 08:59 02/15/19 08:38 Risperidone (RisperDAL) 1 mg Q6H PRN ORAL agitation 02/12/19 21:30 03/14/19 21:29 Sodium Chloride 1,000 ml @ 100 mls/hr Q10H IV 02/14/19 08:00 03/16/19 07:59 02/15/19 00:49 Assessment/Plan Status: stable Assessment/Plan Atrial fibrillation Encephalopathy Plan Rate control metoprolol 100 mg BID Anticoagulation xarelto 20 mg daily Patient with homelessness and may not have access to medications/compliance etc Defer cardioversion Dispo planning Kike Porter MD Feb 15, 2019 09:32
--- NOTE | 2019-02-15 09:50 | Pulmonology Progress Note ---
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 Monitor. Cr at 1.4. Appreciate consultations Await input from SW re: DC disposition Per psych; pt lacks capacity Subjective Interval Events: lOOKING AND FEELING BETTER Constitutional: Reports: no symptoms HEENT: Repors: no symptoms Respiratory: Reports: no symptoms Cardiovascular: Reports: no symptoms Gastrointestinal/Abdominal: Reports: no symptoms Genitourinary: Reports: no symptoms Neurologic: Reports: no symptoms Allergies: Coded Allergies: No Known Allergies (Unverified , 02/12/19) Objective Last 24 Hour Vital Signs Date Time Temp Pulse Resp B/P (MAP) Pulse Ox O2 Delivery O2 Flow Rate FiO2 02/15/19 08:38 100 142/103 02/15/19 08:00 97.2 100 18 142/103 (116) 98 02/15/19 04:00 97.0 59 20 135/79 (97) 95 02/15/19 04:00 54 02/15/19 00:00 98.3 83 20 135/94 (108) 97 02/15/19 00:00 71 02/14/19 21:00 Room Air 02/14/19 20:26 89 154/98 02/14/19 20:00 98.0 89 20 154/98 (116) 97 02/14/19 20:00 78 02/14/19 16:00 98.3 77 18 129/82 (98) 98 02/14/19 16:00 68 02/14/19 12:00 98.6 76 18 132/90 (104) 99 02/14/19 12:00 71 02/14/19 10:43 73 Intake and Output 02/14/19 02/15/19 19:00 07:00 Intake Total 872.861 ml 1448.939 ml Balance 872.861 ml 1448.939 ml Intake Oral 750 ml 120 ml IV Total 122.861 ml 1328.939 ml # Voids 5 3 # Bowel Movements 1 General Appearance: no acute distress HEENT: normocephalic Respiratory/Chest: chest wall non-tender, lungs clear Cardiovascular: normal peripheral pulses, regularly irregular Abdomen: normal bowel sounds, soft, non tender Extremities: no cyanosis Laboratory Tests 02/14/19 16:30: Activated Partial Thromboplast Time 52H 02/15/19 00:15: Activated Partial Thromboplast Time 118H 02/15/19 08:10: Activated Partial Thromboplast Time 56H, Sodium Level 140, Potassium Level 3.7, Chloride Level 108H, Carbon Dioxide Level 26, Anion Gap 6, Blood Urea Nitrogen 16, Creatinine 1.2, Estimat Glomerular Filtration Rate , Glucose Level 143H, Calcium Level 8.8 Current Medications Medications (Trade) Dose Ordered Sig/Skye Route PRN Reason Start Time Stop Time Status Last Admin Dose Admin Acetaminophen (Tylenol) 650 mg Q4H PRN ORAL Mild Pain (Pain Scale 1-3) 02/12/19 12:00 03/14/19 11:59 Dextrose (Dextrose 50%) 25 ml Q30M PRN IV Hypoglycemia 02/12/19 12:00 03/14/19 11:59 Dextrose (Dextrose 50%) 50 ml Q30M PRN IV Hypoglycemia 02/12/19 12:00 03/14/19 11:59 Haloperidol Lactate (Haldol) 5 mg Q6H PRN IM Agitation 02/12/19 21:30 03/14/19 21:29 Metoprolol Tartrate (Lopressor) 100 mg EVERY 12 HOURS ORAL 02/13/19 21:00 03/15/19 20:59 02/15/19 08:38 Multivitamins (Multivitamins) 1 tab DAILY ORAL 02/13/19 09:00 03/15/19 08:59 02/15/19 08:38 Risperidone (RisperDAL) 1 mg Q6H PRN ORAL agitation 02/12/19 21:30 03/14/19 21:29 Rivaroxaban (Xarelto) 15 mg QPM ORAL 02/15/19 16:30 03/17/19 16:29 Sodium Chloride 1,000 ml @ 100 mls/hr Q10H IV 02/14/19 08:00 03/16/19 07:59 02/15/19 00:49 Chintan Aburto MD Feb 15, 2019 09:50
[2019-02-15 12:00] VITALS: BP 145/99
--- NOTE | 2019-02-15 12:30 | NUR ---
NURSE NOTES: Dr. Kelley at the bedside, made aware patient wander around, took elevator down and got caught. Patient stated she was going cafeteria. Per Dr. Kelley, ativan 2mg PO q 6h prn for anxiety, Namenda 10mg daily PO. Order noted, entered, carried out.
[2019-02-15] MEDS: LORazepam 1mg tab ORAL PRN ×2 (13:18→19:50)
[2019-02-15 16:00] VITALS: BP 131/86
--- NOTE | 2019-02-15 16:01 | NUR ---
Social Work/Discharge planning This Sw met with patient who continues to show confusion, lacks capacity to make decisions (See Psychiatry note as well). This SW contacted missing persons who reported neighbor/friends filed patient missing since last February 10. Patient has wandered out of her home in the past, while APS was also following (patient was not cooperative with placement, according to missing persons unit). Patient has not been paying her rent and showing unkept/unsanitary home, while patient also appears to have a foul smell, had not bathed for quite sometime. Patient making statements she is age 39, while stating she is looking for a job here. Patient is currently pleasant and cooperative, while this SW suggested extended care upon discharge. This SW located friend/neighbor, Fabiola Wilkerson (cell [phone] home [phone]) who is working with an Fortune Teller/in the process with applying for guardianship for patient. Patient receives approximately 1100 dollars per month from Social Security. This SW also spoke with grounds manager of her apartment, [employer] ([phone]), who explains they were planning to evacuate patient, due to patient has not been paying her rent for the past two months. 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 This Sw spoke with [facility], [employer], [employer] ([phone] fax: [phone]) who requested clinicals to be faxed to her (this SW faxed clinicals). [employer] provided the following SNF options for placement: 1) [facility]: [phone] fax: [phone] 2) [facility]: [phone] fax: [phone] (this SW faxed chart information for both to evaluate) Friend, Fabiola will be leaving to [facility] this Friday, can be reached by e-mail @ [email or web address] Addendum: 02/15/19 at 1627 by JAME OLIVEIRA MSW Addendum: According to friend, patient does not have any other family to assist with care or decision making (originally from [place], did not keep in contact with any family when moving to [place] over twenty years ago).
[2019-02-15] MEDS: Xarelto 15mg tab ORAL SCH (17:10)
--- NOTE | 2019-02-15 19:10 | NUR ---
HAND-OFF: Report given to RACHEL English.
--- NOTE | 2019-02-15 19:10 | NUR ---
NURSE NOTES: report received from RACHEL Huynh. patient seen in bed resting, alert, verbally responsive, able to make needs known. Denies any pain at this time. Respira Addendum: 02/15/19 at 1913 by Tracey Monroe RN NURSE NOTES: report received from RACHEL Huynh. patient seen in bed resting, alert, verbally responsive, able to make needs known. Denies any pain at this time. Respiration even, no SOB , currently on RA sp02 98%. IV site noted to left wrist 22g and right FA 20g, both is intact. Bed is in lowest position. Call light is within easy reach while in bed. Will continue to monitor.
[2019-02-15 20:00] VITALS: BP 128/76
--- NOTE | 2019-02-15 22:30 | General Progress Note ---
Assessment/Plan Problem List: (1) Acute metabolic encephalopathy ICD Codes: G93.41 - Metabolic encephalopathy SNOMED: 85820165, [id number] Assessment/Plan Haldol Im prn Risperdal prn the pt lacks capacity to make decisions. Namenda Ativan prn Subjective Neurologic/Psychiatric: Reports: anxiety, depressed, emotional problems Allergies: Coded Allergies: No Known Allergies (Unverified , 02/12/19) Objective Last 24 Hour Vital Signs Date Time Temp Pulse Resp B/P (MAP) Pulse Ox O2 Delivery O2 Flow Rate FiO2 02/15/19 20:43 90 128/80 02/15/19 16:00 83 02/15/19 16:00 98.8 84 18 131/86 (101) 98 02/15/19 12:00 98.1 88 18 145/99 (114) 99 02/15/19 12:00 89 02/15/19 09:00 Room Air 02/15/19 08:38 100 142/103 02/15/19 08:00 97.2 100 18 142/103 (116) 98 02/15/19 08:00 88 02/15/19 04:00 97.0 59 20 135/79 (97) 95 02/15/19 04:00 54 02/15/19 00:00 98.3 83 20 135/94 (108) 97 02/15/19 00:00 71 Intake and Output 02/14/19 02/15/19 19:00 07:00 Intake Total 872.861 ml 1448.939 ml Balance 872.861 ml 1448.939 ml Intake Oral 750 ml 120 ml IV Total 122.861 ml 1328.939 ml # Voids 5 3 # Bowel Movements 1 Laboratory Tests 02/15/19 00:15: Activated Partial Thromboplast Time 118H 02/15/19 08:10: Activated Partial Thromboplast Time 56H, Sodium Level 140, Potassium Level 3.7, Chloride Level 108H, Carbon Dioxide Level 26, Anion Gap 6, Blood Urea Nitrogen 16, Creatinine 1.2, Estimat Glomerular Filtration Rate , Glucose Level 143H, Calcium Level 8.8 Height (Feet): 5 Height (Inches): 2.00 Weight (Pounds): 140 General Appearance: WD/WN, no apparent distress, alert, confused Candie Kelley MD Feb 15, 2019 22:30
[2019-02-16] VITALS: BP 132/80
[2019-02-16 04:00] VITALS: BP 136/76
--- NOTE | 2019-02-16 07:19 | NUR ---
NURSE NOTES: Received report from Tracey RAMOS at the bedside. Asleep but arousable in bed. No c/o pain. No signs of distress noted. Bed in lowest position locked. Rhythm reported with A-fib but controlled during tunnel heading supervisor. IV Lt wrist with 22G intact patent with saline lock. Continue to monitor
--- NOTE | 2019-02-16 07:19 | NUR ---
HAND-OFF: Report given to Aviva Hillman RN.
[2019-02-16 08:00] VITALS: BP 152/99
--- NOTE | 2019-02-16 08:15 | NUR ---
CASE MANAGEMENT:REVIEW 02/16/19 SI: ACUTE ENCEPHALOPATHY. AFIB 98.0 93 16 136/76 98% ON RA IS: RISPERDAL PO QHS NAMENDA PO QD XARELTO PO QPM IVF@100/HR LOPRESSOR PO Q12 MVI PO QD : TELEMETRY STATUS DCP: PATIENT IS FROM [facility]RE[facility] ~ LACKS CAPACITY PLAN: WILL NEED SNF PLACEMENT UNTIL NO LONGER ENCEPHALOPATHIC
[2019-02-16] MEDS ORDERED: Memantine 10mg tab ORAL SCH (09:00)
--- NOTE | 2019-02-16 09:32 | Nephrology Progress Note ---
Assessment/Plan Assessment/Plan A/P 1) Acute Encephalopathy- resolved. Awaiting DC 2) Homeless- SW to place 3) DVT prophylaxsis- SCDs 4) E- Abn- replace K+ and Mg. At goal 5) CKD 3B- stable 1.2 -OK for DC from renal point Subjective Date patient seen: Feb 16, 2019 Time patient seen: 09:31 ROS Limited/Unobtainable: No Allergies: Coded Allergies: No Known Allergies (Unverified , 02/12/19) Subjective Patient continues to improve Objective Last 24 Hour Vital Signs Date Time Temp Pulse Resp B/P (MAP) Pulse Ox O2 Delivery O2 Flow Rate FiO2 02/16/19 09:00 68 152/99 02/16/19 08:00 98.0 68 20 152/99 (116) 98 02/16/19 04:00 98.0 93 16 136/76 (96) 98 02/16/19 03:38 68 02/16/19 00:00 98.4 86 17 132/80 (97) 98 02/15/19 23:30 77 02/15/19 21:00 Room Air 02/15/19 20:43 90 128/80 02/15/19 20:00 98.0 90 17 128/76 (93) 97 02/15/19 19:37 88 02/15/19 16:00 83 02/15/19 16:00 98.8 84 18 131/86 (101) 98 02/15/19 12:00 98.1 88 18 145/99 (114) 99 02/15/19 12:00 89 Intake and Output 02/15/19 02/16/19 18:59 06:59 Intake Total 849.051 ml 160 ml Balance 849.051 ml 160 ml Intake Oral 730 ml 160 ml IV Total 119.051 ml # Voids 4 2 Height (Feet): 5 Height (Inches): 2.00 Weight (Pounds): 140 General Appearance: no apparent distress, alert EENT: normal ENT inspection Neck: normal alignment, supple Cardiovascular: normal rate, regular rhythm Respiratory/Chest: normal breath sounds Abdomen: non tender, soft Edema: no edema noted Arm (L), no edema noted Arm (R), no edema noted Leg (L), no edema noted Leg (R), no edema noted Pedal (L), no edema noted Pedal (R), no edema noted Generalized Basim Mccrary MD Feb 16, 2019 09:32
--- NOTE | 2019-02-16 10:26 | Pulmonology Progress Note ---
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 Monitor. Appreciate consultations Await input from SW re: DC disposition Per psych; pt lacks capacity Subjective Interval Events: None new Constitutional: Reports: no symptoms HEENT: Repors: no symptoms Respiratory: Reports: no symptoms Cardiovascular: Reports: no symptoms Gastrointestinal/Abdominal: Reports: no symptoms Allergies: Coded Allergies: No Known Allergies (Unverified , 02/12/19) Objective Last 24 Hour Vital Signs Date Time Temp Pulse Resp B/P (MAP) Pulse Ox O2 Delivery O2 Flow Rate FiO2 02/16/19 09:00 68 152/99 02/16/19 08:00 98.0 68 20 152/99 (116) 98 02/16/19 07:41 72 02/16/19 04:00 98.0 93 16 136/76 (96) 98 02/16/19 03:38 68 02/16/19 00:00 98.4 86 17 132/80 (97) 98 02/15/19 23:30 77 02/15/19 21:00 Room Air 02/15/19 20:43 90 128/80 02/15/19 20:00 98.0 90 17 128/76 (93) 97 02/15/19 19:37 88 02/15/19 16:00 83 02/15/19 16:00 98.8 84 18 131/86 (101) 98 02/15/19 12:00 98.1 88 18 145/99 (114) 99 02/15/19 12:00 89 Intake and Output 02/15/19 02/16/19 18:59 06:59 Intake Total 849.051 ml 160 ml Balance 849.051 ml 160 ml Intake Oral 730 ml 160 ml IV Total 119.051 ml # Voids 4 2 Current Medications Medications (Trade) Dose Ordered Sig/Skye Route PRN Reason Start Time Stop Time Status Last Admin Dose Admin Acetaminophen (Tylenol) 650 mg Q4H PRN ORAL Mild Pain (Pain Scale 1-3) 02/12/19 12:00 03/14/19 11:59 Dextrose (Dextrose 50%) 25 ml Q30M PRN IV Hypoglycemia 02/12/19 12:00 03/14/19 11:59 Dextrose (Dextrose 50%) 50 ml Q30M PRN IV Hypoglycemia 02/12/19 12:00 03/14/19 11:59 Haloperidol Lactate (Haldol) 5 mg Q6H PRN IM Agitation 02/12/19 21:30 03/14/19 21:29 Lorazepam (Ativan) 2 mg Q6H PRN ORAL For Anxiety 02/15/19 12:45 02/22/19 12:44 02/15/19 19:50 Memantine (Namenda) 10 mg DAILY ORAL 02/16/19 09:00 03/18/19 08:59 Metoprolol Tartrate (Lopressor) 100 mg EVERY 12 HOURS ORAL 02/13/19 21:00 03/15/19 20:59 02/15/19 20:43 Multivitamins (Multivitamins) 1 tab DAILY ORAL 02/13/19 09:00 03/15/19 08:59 02/15/19 08:38 Risperidone (RisperDAL) 1 mg BEDTIME ORAL 02/16/19 22:45 03/18/19 22:44 Risperidone (RisperDAL) 1 mg Q6H PRN ORAL agitation 02/12/19 21:30 03/14/19 21:29 Rivaroxaban (Xarelto) 15 mg QPM ORAL 02/15/19 16:30 03/17/19 16:29 02/15/19 17:10 Chintan Aburto MD Feb 16, 2019 10:26
[2019-02-16 12:00] VITALS: BP 156/98
--- NOTE | 2019-02-16 12:24 | NUR ---
Social Service Note Patient accepted at [facility] [phone] ([place]), skilled to room 211-A. VIPUL obtained ambulance authorization from life insurance underwriter Glory [phone]. [facility] [phone] auth# [id number]. VIPUL discussed with CM. Pending PT eval and dc order. Will monitor and follow up.
--- NOTE | 2019-02-16 13:27 | NUR ---
P.T Note: P.T evaluation completed and treatment initiated. Please refer to P.T evaluation for current functional status. Pt presented generalized weakness and deconditioning affecting her overall balance and functional mobilities. Pt currently require MIN A X 1 bed mobility, transfers and gait/ambulation activities. Skilled P.T service is warranted to improve her strength, endurance and balance to increase mobility independence and safety. Recommend SNF for further rehab. Thank you for this referral.
--- NOTE | 2019-02-16 13:54 | NUR ---
HAND-OFF: Report given to Joss RAMOS. pt remains stable. About to discharge to SNF.
--- NOTE | 2019-02-16 13:56 | NUR ---
INSURANCE FAXED CLINICLAS AND REVIEWS TO [facility] ANGELA RUCKER T: [phone] F: [phone]
--- NOTE | 2019-02-16 14:05 | NUR ---
NURSE NOTES: Received patient awake on semi monk position on stable condition with no SOB or distress noted. A/O X 2-3, verbally responsive and able to make needs known. IV intact and patent. Kept patient clean and comfortable in bed, call light within patient reach, will continue to monitor accordingly.
--- NOTE | 2019-02-16 15:05 | NUR ---
Social Service Note Transportation arranged with [employer] [phone], strip picker time 1630. Nurse to call report prior to transport [phone].
--- NOTE | 2019-02-16 15:55 | General Progress Note ---
Assessment/Plan Problem List: (1) Acute metabolic encephalopathy ICD Codes: G93.41 - Metabolic encephalopathy SNOMED: 22835213, 602777315 (2) Dementia ICD Codes: F03.90 - Unspecified dementia without behavioral disturbance SNOMED: 59290361 Status: stable Assessment/Plan Haldol Im prn Risperdal prn the pt lacks capacity to make decisions. Namenda Ativan prn Subjective Neurologic/Psychiatric: Reports: anxiety Allergies: Coded Allergies: No Known Allergies (Unverified , 02/12/19) Subjective the pt is less confused the pt still unable to provide meaningful info Objective Last 24 Hour Vital Signs Date Time Temp Pulse Resp B/P (MAP) Pulse Ox O2 Delivery O2 Flow Rate FiO2 02/16/19 12:00 98.5 86 18 156/98 (117) 97 02/16/19 09:00 68 152/99 02/16/19 09:00 Room Air 02/16/19 08:00 98.0 68 20 152/99 (116) 98 02/16/19 07:41 72 02/16/19 04:00 98.0 93 16 136/76 (96) 98 02/16/19 03:38 68 02/16/19 00:00 98.4 86 17 132/80 (97) 98 02/15/19 23:30 77 02/15/19 21:00 Room Air 02/15/19 20:43 90 128/80 02/15/19 20:00 98.0 90 17 128/76 (93) 97 02/15/19 19:37 88 02/15/19 16:00 83 02/15/19 16:00 98.8 84 18 131/86 (101) 98 Intake and Output 02/15/19 02/16/19 19:00 07:00 Intake Total 730 ml 160 ml Balance 730 ml 160 ml Intake Oral 730 ml 160 ml # Voids 4 2 Height (Feet): 5 Height (Inches): 2.00 Weight (Pounds): 140 General Appearance: alert, confused, agitated Candie Kelley MD Feb 16, 2019 15:55
[2019-02-16 16:00] VITALS: BP 102/62
[2019-02-16] MEDS: Xarelto 15mg tab ORAL SCH (17:21)
--- NOTE | 2019-02-16 17:53 | NUR ---
NURSE NOTES: Discharged patient on stable condition with no SOB or distress noted. Belongings given, IV removed, education given to patient. Called for report to [facility]. Patient left accompanied with EMT's without any incidents.
--- NOTE | 2019-02-18 13:45 | Discharge Summary ---
Discharge Summary Discharge Summary _ DATE OF ADMISSION: 02/12/2019 DATE OF DISCHARGE: 02/16/2019 DISCHARGED BY: Dr. Aburto REASON FOR ADMISSION: 79 years old female was found on the sidewalk next to the hospital. Patient was brought in by paramedics. Patient was unable to provide any history. Patient was unable to give details about her residence or any other medical issues. Patient was seen and evaluated in emergency department. Patient was found to be disheveled with poor personal hygiene. Patient only reported having hypertension. Upon evaluation blood pressure was 142/80, otherwise no fevers, pulse oximetry stable on room air. Laboratory workup revealed no leukocytosis, hemoglobin 11.4, hematocrit 34.1. BUN 27, creatinine 1.3. Glucose 106. Troponin negative. EKG revealed normal sinus rhythm, no acute ischemic changes. Chest x-ray revealed no acute cardiopulmonary pathology, borderline cardiomegaly noted. CT of the head revealed chronic and age-related changes. Old basal ganglia lacunar infarcts. Negative for acute intracranial bleeding or mass-effect. Patient was admitted for further management to monitored floor. CONSULTANTS: header boss Dr. Porter litharge supervisor Dr.De Dodd psychiatrist [facility] COURSE: Patient admitted to monitored floor. Social service consultation was requested along with psychiatric consult. Patient started on IV fluids. Renal parameters and electrolytes were closely monitored. Electrolytes corrected as needed. Nephrotoxins were avoided. Prior to discharge creatinine down to 1.2. BUN down to 16. Potassium and magnesium were replaced, stable. Per litharge supervisor , patient had chronic kidney disease stage 3B and remained stable. Technical Recruiter consulted, when patient noted to be in atrial fibrillation with rapid ventricular response. Patient initially started on heparin drip and metoprolol for rate control. Patient denied chest pain , shortness of breath. Supplemental oxygen provided as needed to keep pulse oximetry above 92%. Pulmonary toilet provided as needed. Pulse oximetry was stable on room air. Anticoagulation was changed to Xarelto prior to discharge. Hemoglobin and hematocrit remained stable. Psychiatrist followed. Per psychiatrist, patient had acute metabolic encephalopathy and dementia. Psychiatric medication regimen was optimized. Per psychiatrist, patient lacked capacity to make informed decisions. Patient was working with physical therapist, who recommended [facility] facility for further management. tie up worker found placement at [facility]. Patient was stable for transfer for continuation of care. FINAL DIAGNOSES: Acute metabolic encephalopathy -resolved Atrial fibrillation with rapid ventricular response- controlled Chronic kidney disease stage 3B Electrolyte abnormality/potassium, magnesium-repleted Dehydration Homeless Dementia DISCHARGE MEDICATIONS: List of medication was sent with patient DISCHARGE INSTRUCTIONS: Patient was discharged to the [facility] facility. Follow up with medical doctor at the facility. I have been assigned to dictate discharge summary for this account. I was not involved in the patient's management. Desitny Tompkins NP Feb 18, 2019 13:45
== END 2019-02-16 17:57 | disposition short-term general hospital (02) | DRG 71 ==
LOC: EDBD 08:05 → EMR 09:03 → 2E 09:30 → EDBEDREQ 10:07 → 2E 02-14 00:20
DX: G93.41 Metabolic encephalopathy (principal); N17.9 Acute kidney failure, unspecified; Z59.0 Homelessness; I48.91 Unspecified atrial fibrillation; N18.3 Chronic kidney disease, stage 3 (moderate); E87.8 Other disorders of electrolyte and fluid balance, not elsewhere classified; E86.0 Dehydration; F03.90 Unspecified dementia, unspecified severity, without behavioral disturbance, psychotic disturbance, mood disturbance, and anxiety
CPT/HCPCS: 36415; 70450; 71045; 80048; 80053; 81003; 82550; 82553; 82962; 83605; 83690; 83735; 83880; 84100; 84484; 85025; 85730; 87040; 87081; 93005; 96360; 99285; J8499